=== PATIENT | female | born 1945 | race Caucasian/White ===

== ENCOUNTER 2019-12-16 14:43 | Emergency (ER) | payer OTHER ==
[~2019-12-16] VITALS: Ht 154.9 cm; Wt 53.9 kg
--- NOTE | 2019-12-16 15:03 | NUR ---
STATES RT ARM FX X 3 WEEKS AGO. STATES INCREASED PAIN TODAY. PT STATES SHE NEVER FOLLOWED UP WITH [facility] PER ORDERS DUE TO NOT BEING ABLE TO GET AN APPOINTMENT. PLACED ON MONITOR. VS STABLE. WILL CONTINUE TO MONITOR PT.
[2019-12-16] MEDS ORDERED: HYDROcodone/APAP 5/325 TABLET ONE (15:18)
[2019-12-16] MEDS ORDERED: HYDROcodone/APAP 5/325 TABLET PO ONE (15:30)
[2019-12-16 16:33] VITALS: BP 132/74
== END 2019-12-16 16:36 | disposition home or self-care (01) ==
LOC: ED 16:30
DX: S52.591A Other fractures of lower end of right radius, initial encounter for closed fracture (principal); F17.290 Nicotine dependence, other tobacco product, uncomplicated; W18.39XA Other fall on same level, initial encounter; Y93.89 Activity, other specified; Y92.098 Other place in other non-institutional residence as the place of occurrence of the external cause; Y99.8 Other external cause status
CPT/HCPCS: 29125; 99283

== ENCOUNTER 2020-01-28 14:14 | Emergency (ER) | payer MEDICARE, MEDICAID ==
[~2020-01-28] VITALS: Ht 154.9 cm; Wt 54.3 kg
--- NOTE | 2020-01-28 14:45 | NUR ---
PT C/O EXTREME LEFT SHOULDER PAIN. PT UNABLE TO PERFORM FULL ROM. WHEN PT MOVES ARM SHE YELLS OUT IN PAIN. UNABLE TO REMOVE SHIRT AT THIS TIME. PILLOW PROVIDED FOR SUPPORT AT THIS TIME.
--- NOTE | 2020-01-28 14:51 | NUR ---
PT PROVIDED WITH ICE PACK TO HELP WITH PAIN.
[2020-01-28] MEDS ORDERED: ONDANSETRON 2MG/ML, 2ML ONE (15:12)
[2020-01-28] MEDS ORDERED: MORPHINE SULFATE 4 MG/ML, 1ML ONE (15:12)
--- NOTE | 2020-01-28 15:23 | NUR ---
PT MEDICATED PER EMAR, STATES SHE RECIEVED SOME RELIEF. XRAY IN ROOM NOW
[2020-01-28] MEDS ORDERED: morphine SULFATE 10 MG/ML, 1ML IVPush ONE (15:30)
[2020-01-28] MEDS ORDERED: ONDANSETRON 2MG/ML, 2ML IVPush ONE (15:30)
[2020-01-28 15:55] VITALS: BP 180/89
--- NOTE | 2020-01-28 15:55 | NUR ---
Pt requesting more pain medication, notified. Awaiting xray results.
[2020-01-28] MEDS ORDERED: HYDROcodone/APAP 10/325 MG TABLET ONE (16:58)
[2020-01-28] MEDS ORDERED: HYDROcodone/APAP 10/325 MG TABLET PO ONE (17:00)
--- NOTE | 2020-01-28 17:01 | NUR ---
Pt placed in sling and medicated per emar.
== END 2020-01-28 17:15 | disposition home or self-care (01) ==
LOC: ED 17:00
DX: M25.512 Pain in left shoulder (principal)
CPT/HCPCS: 73030; 96374; 96375; 99284; J2270; J2405

== ENCOUNTER 2020-10-22 14:17 | Outpatient (CLI) | payer MEDICARE, MEDICAID | END 2020-10-22 23:59 | disposition home or self-care (01) | LOC: STAR 14:17 | PROVIDERS: ATTEND Anesthesiology | DX: Z01.818 Encounter for other preprocedural examination (principal); Z01.89 Encounter for other specified special examinations; R79.1 Abnormal coagulation profile; Z01.812 Encounter for preprocedural laboratory examination; I45.10 Unspecified right bundle-branch block | CPT/HCPCS: 93005 ==

== ENCOUNTER 2020-12-20 15:49 | Inpatient (IN) | payer MEDICARE, MEDICAID ==
[~2020-12-20] VITALS: Ht 154.9 cm; Wt 61.4 kg
--- NOTE | 2020-12-20 16:26 | NUR ---
PT STATES WAS WORKING AROUND THE HOUSE AND STOOD UP AND FOOT WENT TO SLEEP, STOOD UP TO STOP IT AND IT JUST CRUMPLED ON ME AND I FELL DOWN. PT HAS BEEN TAKING TYLENOL SINCE YESTERDAY LAST TIME WAS AT 1245PM TODAY. PAIN HAS NOT GONE AWAY. HX OSTEOPEROSIS SEVERE, WITH SO MANY SURGERIES AND BROKEN BONES. 02/22 LEFT FOOT.
--- NOTE | 2020-12-20 16:38 | NUR ---
PEDAL PULSE IN LEFT FOOT.
--- NOTE | 2020-12-20 16:48 | NUR ---
PROVIDER AT BEDSIDE TO DO EVALUATION. AWAITING NEW ORDERS.
[2020-12-20] MEDS ORDERED: HYDROcodone/APAP 5/325 TABLET PO ONE (17:00)
[2020-12-20] MEDS ORDERED: HYDROcodone/APAP 5/325 TABLET ONE (17:04)
[2020-12-20] MEDS ORDERED: SODIUM CHLORIDE FLUSH 10ML SYR IVF PRN (18:00)
[2020-12-20] MEDS ORDERED: ONDANSETRON 2MG/ML, 2ML IVPush ONE (18:00)
[2020-12-20] MEDS ORDERED: MORPHINE SULFATE 4 MG/ML, 1ML IVPush PRN ×2 (18:00)
[2020-12-20] MEDS ORDERED: SODIUM CHLORIDE FLUSH 10ML SYR IVF ONE (18:00)
[2020-12-20] MEDS ORDERED: SODIUM CHLORIDE 0.9% 1,000 ML IV ONE (18:00)
[2020-12-20] MEDS ORDERED: ONDANSETRON 2MG/ML, 2ML IVPush PRN ×2 (18:00→20:00)
[2020-12-20] MEDS ORDERED: ONDANSETRON 2MG/ML, 2ML ONE (18:10)
[2020-12-20] MEDS ORDERED: MORPHINE SULFATE 4 MG/ML, 1ML ONE (18:10)
--- NOTE | 2020-12-20 18:20 | NUR ---
PT STATES PAIN IS MUCH BETTER AFTER MEDICATION.
[2020-12-20] MEDS ORDERED: METOPROLOL ×2 (18:26→18:28)
[2020-12-20] MEDS ORDERED: SERT100T32 PO ×2 (18:26→18:27)
--- NOTE | 2020-12-20 18:45 | NUR ---
CALLED REPORT TO CHUY MARINO TO ASSUME CARE.
[2020-12-20] MEDS ORDERED: KETOROLAC 30 MG/1 ML ONE (18:48)
[2020-12-20] MEDS ORDERED: KETOROLAC 30 MG/1 ML IVPush PRN (19:00)
[2020-12-20 19:11] LABS: ALBUMIN 3.4 g/dL (3.4-5.0); ANION GAP 6 mmol/L (5-15); CHLORIDE 112 mmol/L (98-107); CREATININE 0.44 mg/dL (0.55-1.02)
[2020-12-20 19:17] LABS: BASOPHILS % (AUTO) 1 % (0-1); EOSINOPHILS % (AUTO) 1 % (1-7); LYMPHOCYTES % (AUTO) 12 % (22-44); MEAN CORPUSCULAR HGB CONC 32.3 g/dL (32.4-35.8); MEAN PLATELET VOLUME 10.1 fL (7.4-10.4); MONOCYTES % (AUTO) 10 % (2-9); NEUTROPHILS % (AUTO) 76 % (42-75); PLATELET COUNT 235 x10^3/uL (130-400); RED BLOOD COUNT 4.82 x10^6/uL (3.82-5.3); RED CELL DISTRIBUTION WIDTH 19.4 % (9.6-15.2)
[2020-12-20 20:00] VITALS: BP 160/77
[2020-12-20] MEDS ORDERED: MELATONIN 5 MG TABLET PO PRN (20:00)
[2020-12-20] MEDS ORDERED: DOCUSATE 100 MG CAPSULE PO PRN (20:00)
[2020-12-20] MEDS: HEPARIN 5,000 UNITS/ML, 1ML SQ SCH (21:52)
[2020-12-20 21:53] VITALS: BP 160/77
[2020-12-21 00:25] VITALS: BP 155/76
[2020-12-21 03:10] LABS: MICROSCOPIC NOT IND
[2020-12-21] MEDS: HEPARIN 5,000 UNITS/ML, 1ML SQ SCH ×2 (05:58→14:24)
[2020-12-21] MEDS: OXYcodone/APAP 5/325MG TABLET PO PRN ×2 (06:05→12:56)
[2020-12-21] MEDS ORDERED: POTASSIUM CHLORIDE 20 MEQ TAB.ER.PRT PO ONE (06:30)
[2020-12-21 07:28] VITALS: BP 101/60
[2020-12-21] MEDS ORDERED: POTASSIUM CHLORIDE 20 MEQ TAB.ER.PRT ONE (12:42)
[2020-12-21 13:38] VITALS: BP 131/72
[2020-12-21] MEDS ORDERED: METOPROLOL SUCCINATE 50 MG TAB.ER.24H PO SCH (15:00)
== END 2020-12-21 17:49 | disposition home or self-care (01) | DRG 563 ==
LOC: ED 16:42 → EDIP 18:00 → 3N 18:58
PROVIDERS: ADMIT Internal Medicine; ATTEND Internal Medicine
PROC: 2W3TX1Z Immobilization of Left Foot using Splint (ICD-10-PCS; principal; 2020-12-20)
DX: S92.353A Displaced fracture of fifth metatarsal bone, unspecified foot, initial encounter for closed fracture (principal); M80.872A Other osteoporosis with current pathological fracture, left ankle and foot, initial encounter for fracture; F32.9 Major depressive disorder, single episode, unspecified; Z60.2 Problems related to living alone; I10 Essential (primary) hypertension; Z90.710 Acquired absence of both cervix and uterus; Z90.49 Acquired absence of other specified parts of digestive tract; Z90.722 Acquired absence of ovaries, bilateral; Z79.899 Other long term (current) drug therapy
CPT/HCPCS: 36415; 80048; 81003; 82040; 85025; G0378; J1644; J1885; J2405; J2270; J7030